=== PATIENT | female | born 1995 | race Caucasian/White ===

== ENCOUNTER 2017-07-06 09:43 | Emergency (ER) | payer OTHER ==
[~2017-07-06] VITALS: Ht 160 cm; Wt 74.0 kg
[2017-07-06 09:46] VITALS: Ht 160 cm; Wt 74.0 kg
--- NOTE | 2017-07-06 10:08 | ERD ---
ER Documentation Chief Complaint Date/Time DATE: 07/06/17 TIME: 10:[address] HPI This is a 22-year-old female who presents to the ER for evaluation of a sore throat that she has had for the past 2 days. The patient states that she does not have a cough associated with this but has had some chills and came to the ER for evaluation. She denies any difficulty swallowing at this time. ROS All systems reviewed and are negative except as per history of present illness. Physical Exam Vitals Vital Signs Date Time Temp Pulse Resp B/P Pulse Ox O2 Delivery O2 Flow Rate FiO2 07/06/17 09:46 97.8 96 18 138/68 99 Physical Exam Const: No acute distress Head: Atraumatic Eyes: Normal Conjunctiva ENT: Bilateral tonsillar exudates, no pharyngeal edema, normal External Ears , Nose and Mouth. Neck: Full range of motion..~ No meningismus. Resp: Clear to auscultation bilaterally Cardio: Regular rate and rhythm, no murmurs Abd: Soft, non tender, non distended. Normal bowel sounds Skin: No petechiae or rashes Back: No midline or flank tenderness Ext: No cyanosis, or edema Neur: Awake and alert Psych: Normal Mood and Affect Procedures/MDM This 22-year-old female presents to the ER for evaluation of a sore throat. When I evaluated this patient this patient did have bilateral exudates on tonsils consistent with acute strep pharyngitis. She will be discharged home with a prescription for amoxicillin at this time. She is no signs of respiratory distress or difficulty swallowing. Departure Diagnosis: Primary Impression: Acute streptococcal pharyngitis Condition: Stable ADRIAN FERREIRA DO Jul 06, 2017 10:08
[2017-07-06] MEDS ORDERED: AMO500 PO (10:09)
== END 2017-07-06 10:46 | disposition home or self-care (01) ==
LOC: E/R 09:43
DX: J02.0 Streptococcal pharyngitis (principal)
CPT/HCPCS: 99283

== ENCOUNTER 2019-02-16 11:31 | Emergency (ER) | payer SELFPAY ==
[~2019-02-16] VITALS: Ht 162.6 cm; Wt 81.5 kg
[~2019-02-16 11:31] MED LIST: AMOX500C2 PO
[2019-02-16 11:41] VITALS: BP 121/71; PULSE 100; RESP 20; Ht 162.6 cm; Wt 81.5 kg
== END 2019-02-16 17:07 | disposition left against medical advice (07) ==
LOC: FTE 11:31
DX: Z53.21 Procedure and treatment not carried out due to patient leaving prior to being seen by health care provider (principal)